=== PATIENT | female | born 1965 | race Caucasian/White ===

== ENCOUNTER → 2023-01-14 | Outpatient (CLI) | payer BC ==
[~2023-01-14] MED LIST: CARAFATE1 GM/10 ML PO; COLESTID PO; DICYCLOMINE PO; FIORICET1 EA PO; PANTOPRAZOLE SO40 MG PO; PREMARIN0.625 MG PO; ULTRAM50 MG PO; ZOLPIDEM TARTRA10 MG PO
== END ==
LOC: MRI 13:36
PROVIDERS: ATTEND Internal Medicine Endocrinology, Diabetes & Metabolism
DX: M48.061 Spinal stenosis, lumbar region without neurogenic claudication (principal); E11.65 Type 2 diabetes mellitus with hyperglycemia; N39.46 Mixed incontinence; R15.9 Full incontinence of feces
CPT/HCPCS: 72148

== ENCOUNTER → 2023-02-13 | Outpatient (CLI) | payer BC | LOC: MRI 09:06 | PROVIDERS: ATTEND Specialist | DX: M75.101 Unspecified rotator cuff tear or rupture of right shoulder, not specified as traumatic (principal) ==

== ENCOUNTER → 2024-04-29 | Outpatient (REF) | payer BC ==
[~2024-04-29] MED LIST changes: +FIORICET 50-301 EACH PO; +GEMTESA75 MG PO; +HYDROXYZIN10 MG/5 ML PO; +METFORMIN HCL500 MG PO; +MOUNJARO5 MG/0.5 M SQ; +ONDANSETRON ODT4 MG PO
== END ==
LOC: MAMMO 12:58
PROVIDERS: ATTEND Internal Medicine Endocrinology, Diabetes & Metabolism
DX: Z12.31 Encounter for screening mammogram for malignant neoplasm of breast (principal)
CPT/HCPCS: 77067

== ENCOUNTER 2024-11-10 16:18 | Emergency (ER) | payer BC ==
[~2024-11-10] VITALS: Ht 162.6 cm; Wt 81.2 kg
[2024-11-10] MEDS ORDERED: BENZONATATE200 MG PO (17:03)
[2024-11-10 17:15] VITALS: PULSE 77; RESP 16; TEMP 97.8; O2SAT 97
== END 2024-11-10 17:15 | disposition home or self-care (01) ==
LOC: FSED 16:42
DX: R05.9 Cough, unspecified (principal); J10.1 Influenza due to other identified influenza virus with other respiratory manifestations; B34.9 Viral infection, unspecified; R51.9 Headache, unspecified; Z11.52 Encounter for screening for COVID-19
CPT/HCPCS: 0223U; 83518; 87400; 99283

== ENCOUNTER → 2025-04-20 | Outpatient (REF) | payer BC ==
[~2025-04-20] MED LIST changes: +BENZONATATE200 MG PO
== END ==
LOC: US 13:10
PROVIDERS: ATTEND Nurse Practitioner
DX: R10.9 Unspecified abdominal pain (principal)
CPT/HCPCS: 76700; 76856